=== PATIENT | female | born 1965 | race Caucasian/White ===

== ENCOUNTER 2018-07-20 09:49 | Emergency (ER) | payer OTHER ==
[2018-07-20 10:13] VITALS: BP 122/55; PULSE 56; TEMP 98.5; BMI 25.2
--- NOTE | 2018-07-20 11:39 | PDOC ---
History of Present Illness - General Chief Complaint: Back Pain Stated Complaint: RT ARM PAIN Time Seen by Provider: 07/20/18 11:08 - History of Present Illness Initial Comments: 07/20/18 11:35 53-year-old female without comorbidities presents for evaluation of cough 1 month without systemic symptoms and right-sided neck pain times one day. Past History - Past Medical History Allergies/Adverse Reactions: Allergies Allergy/AdvReac Type Severity Reaction Status Date / Time No Known Allergies Allergy Verified 07/20/18 10:10 Home Medications: Ambulatory Orders Amox-Tr/K Cl [Augmentin - 875Mg Tablet] 1 tab PO BID #20 tablet 07/20/18 Budesonide [Rhinocort Allergy] 1 spray NS ONCE #1 spray.pump 07/20/18 Cyclobenzaprine HCl [Flexeril 10 mg] 10 mg PO HS PRN #10 tablet 07/20/18 COPD: No - Surgical History Appendectomy: Yes - Immunization History Immunization Up to Date: Yes - Suicide/Smoking/Psychosocial Hx Smoking History: Never smoked Have you smoked in the past 12 months: No Information on smoking cessation initiated: No Hx Alcohol Use: No Drug/Substance Use Hx: No Review of Systems - Review of Systems Constitutional: No: Fever Respiratory: Yes: Cough Musculoskeletal: Yes: Muscle Pain, Neck Pain Neurological: No: Headache *Physical Exam - Vital Signs Last Vital Signs Temp Pulse Resp BP Pulse Ox 98.5 F 56 L 20 122/55 L 98 07/20/18 10:10 07/20/18 10:10 07/20/18 10:10 07/20/18 10:10 07/20/18 10:10 - Physical Exam Comments: 07/20/18 11:36 HEAD: NC/AT EYES: Conjuntiva clear Ears: Canals and TM's normal NOSE: Clear discharge with injected turbinates tenderness over the frontal sinuses THROAT: Moist mucous membrances, oral pharanx clear, uvula midline NECK: Supple without adenopathy CARDIAC: S1 S2 LUNGS: CTA Full and Equal breath sounds ABDOMEN: Soft NT ND MS: Full ROM in all joints without edema NEUROLOGIC: No gross sensory or motor deficits, NVID SKIN: Normal color and temperature no lesions or rashes Moderate Sedation - Procedure Monitoring Vital Signs: Procedure Monitoring Vital Signs Temperature 98.5 F 07/20/18 10:10 Pulse Rate 56 L 07/20/18 10:10 Respiratory Rate 20 07/20/18 10:10 Blood Pressure 122/55 L 07/20/18 10:10 O2 Sat by Pulse Oximetry (%) 98 07/20/18 10:10 Medical Decision Making - Medical Decision Making 07/20/18 11:36 Sinus pressure with cough 1 month most likely a sinusitis I will treat her for this and have her follow-up with ENT. This is most likely a secondary cervical strain secondary to coughing *DC/Admit/Observation/Transfer Diagnosis at time of Disposition: Cervical strain, Sinusitis - Discharge Dispostion Disposition: HOME Condition at time of disposition: Stable Decision to Admit order: No - Prescriptions Prescriptions: Amox-Tr/K Cl [Augmentin - 875Mg Tablet] 1 tab PO BID #20 tablet Budesonide [Rhinocort Allergy] 1 spray NS ONCE #1 spray.pump Cyclobenzaprine HCl [Flexeril 10 mg] 10 mg PO HS PRN #10 tablet PRN Reason: Muscle Spasms - Referrals Referrals: Abelino River MD [Primary Care Provider] - Jatin Quiroga MD [Staff Physician] - - Patient Instructions Printed Discharge Instructions: DI for Cervical Muscle Strain, Sinusitis, DI for Sinusitis Additional Instructions: Leese take the antibiotics as directed and finish the entire course. Muscle relaxers one tablet before bedtime and will help with your neck pain. Use nasal spray as directed. Follow-up with ear nose and throat doctor in 1-2 days as well as her primary care physician in one to 2 days for further evaluation and treatment options and return to the emergency room for worsening symptoms. - Post Discharge Activity
== END 2018-07-20 11:46 | disposition home or self-care (01) ==
LOC: JERFT 09:49
DX: J01.90 Acute sinusitis, unspecified (principal); S16.1XXA Strain of muscle, fascia and tendon at neck level, initial encounter; X58.XXXA Exposure to other specified factors, initial encounter; Y93.89 Activity, other specified; Y92.89 Other specified places as the place of occurrence of the external cause; Y99.8 Other external cause status
CPT/HCPCS: 99281-25